=== PATIENT | male | born 1935 | race Caucasian/White ===

== ENCOUNTER 2023-04-12 12:41 | Inpatient (IN) | payer MEDICARE, SELFPAY ==
[2023-04-12] VITALS (35 sets, daily range): BP systolic 39–180; BP diastolic 18–100; PULSE 0–120; RESP 0–50; O2SAT 0–100
--- NOTE | ~2023-04-12 | XR_ITS ---
XR chest 1V portable 04/12/2023 13:27 Indication: Weakness and dyspnea Procedure: AP portable chest Comparison: No prior studies for comparison. Findings: Status post median sternotomy for CABG. There are bilateral perihilar and bibasilar interst itial infiltrates. No significant effusion. No pneumothorax. No acute osseous abnormality. Impression: 1: Bilateral interstitial infiltrates of the mid and lower lungs, interstitial edema versus atypical pneumonia. Reviewed, dictated and finalized at location A. Impression: 1: Bilateral interstitial infiltrates of the mid and lower lungs, interstitial edema versus atypical pneumonia.
--- NOTE | ~2023-04-12 | CT_ITS ---
EXAMINATION: CT cervical spine wo con DATE: 04/12/2023 14:16 INDICATION: Neck pain after fall TECHNIQUE: Computed tomography (CT) of the cervical spine was performed without intravenous contrast. The dose-length product was 374 mGy-cm. COMPARISON: None FINDINGS: there is dependent airspace disease of the right apex. There is straightening of cervical l ordosis which may be due to muscle spasm or patient positioning. There is degenerative anterolisthesi s at C4-5. There is severe multilevel uncinate and facet hypertrophy. There is dextroscoliosis. Odont oid process is normal. There is demineralization. No acute fracture, subluxation or dislocation. Ther e is degenerative anterolisthesis at C4-5 and C7-T1. IMPRESSION: 1. No acute abnormality of the cervical spine. 2: Severe cervical spondylosis. Reviewed, dictated and finalized at location A.
--- NOTE | ~2023-04-12 | CT_ITS ---
EXAMINATION: CT brain wo con DATE: 04/12/2023 14:16 INDICATION: Confusion TECHNIQUE: Computed tomography (CT) of the head was performed without intravenous contrast. The dose- length product was 605.33 mGy-cm. Automated exposure control and iterative reconstruction technique w ere employed. COMPARISON: None FINDINGS: Generalized atrophy. There are scattered mild periventricular and subcortical white matter changes, most likely related to small vessel ischemic disease (microangiopathy). No ventriculomegaly or midline shift. Basilar cisterns are patent. There is intracranial atherosclerosis. No acute infarc tion, hemorrhage, mass or mass effect. There is mucosal thickening in the right maxillary sinus with mucoperiosteal reaction. Midline sagittal images are unremarkable. IMPRESSION: 1. No acute intracranial abnormality. 2: Chronic age-related findings Reviewed, dictated and finalized at location A.
--- NOTE | ~2023-04-12 | CT_ITS ---
EXAMINATION: CT abdomen pelvis wo con DATE: 04/12/2023 14:17 INDICATION: abdominal pain, septic TECHNIQUE: Computed tomography (CT) of the abdomen and pelvis was performed without intravenous contr ast. Automated exposure control and iterative reconstruction technique were employed. The dose-length product was 1390.68 mGy-cm. COMPARISON: X-ray chest, same date; renal CT 02/21/2009. FINDINGS: Motion and beam hardening artifact throughout the scan. Lower thorax: Left chest pacer. Sternotomy wires. Dilated central pulmonary arteries. Coronary artery calcifications. Approximately 7.1 cm masslike opacity in the medial right hilar/infrahilar lung. Med iastinal lymphadenopathy. Dependent atelectasis and senescent/interstitial changes. Liver: Trace perihepatic fluid. Biliary/Gallbladder: Gallbladder is normal. No bile duct dilation. Pancreas: No mass or duct dilation. Spleen: Normal. Adrenals:No mass. Kidneys: Bilateral perinephric stranding and cortical atrophy. Simple bilateral cysts. GI tract: No small or large bowel dilation. Normal appendix. Diverticulosis without diverticulitis. T he rectum is mildly dilated to 5 cm by formed stool. Urinary bladder decompressed by a Post catheter . Mesentery/Peritoneum: No ascites, mass, or free air. Retroperitoneum: No mass. Atherosclerotic abdominal aortic and/or arterial calcifications. Pelvis: Pelvic organs are within normal limits. Soft Tissues: Small umbilical hernia containing a loop of bowel, without evidence of inflammatory kenyatta nge, strangulation, or obstruction. Uncomplicated bilateral fat-containing inguinal hernias. Bones: Sclerosis of the T9 vertebral body. Partially visualized uncomplicated appearing right hip ar throplasty. Multiple acute bilateral anterior rib fractures. Lytic and sclerotic lesion in the left s acrum. Focal sclerosis in the left iliac weighing adjacent to the SI joint IMPRESSION: 7.1 cm opacity in the right hilar/infrahilar lung, concerning for neoplasia. Mediastinal lymphadenopa thy. Uncomplicated small bowel containing umbilical hernia. Mild fecal impaction. Osseous lesions con cerning for metastatic disease. Reviewed, dictated and finalized at location K. IMPRESSION: 7.1 cm opacity in the right hilar/infrahilar lung, concerning for neoplasia. Me diastinal lymphadenopathy. Uncomplicated small bowel containing umbilical herni a. Mild fecal impaction. Osseous lesions concerning for metastatic disease.
--- NOTE | 2023-04-12 12:46 | ECG_ITS ---
Measurements Intervals [place] Rate: 77 P: ID: 0 QRS: 249 QRSD: 187 T: 63 QT: 487 QTc: 554 Interpretive Statements ELECTRONIC VENTRICULAR PACEMAKER UNDERLYING ATRIAL TACHYCARDIA WITH VARIABLE BLOCK NO FURTHER INTERPRETATION IS POSSIBLE ABNORMAL ECG NO PREVIOUS ECG AVAILABLE FOR COMPARISON Electronically Signed On 04-12-2023 13:41:54 CDT by Sherman Tuttle D.O.
[2023-04-12 13:09] LABS: Alveolar/Arterial O2 Gradient 53.8 mmHg; Base Excess ABG -14.2 mEq/l (+/-2.0); Fractional Inspired Oxygen 21 %; HCO3 ABG 9.4 mEq/l (22.0-26.0); Methemoglobin ABG 0.3 %THb (0-1.5); Oxygen Content ABG 18.1 %vol (16.0-22.0); Oxygen Saturation ABG 94.1 % (95.0-100.0); Oxyhemoglobin 91.2 % THb (90.0-100.0); PO2 ABG 73.5 mmHg (80.0-100.0); Reduced Hemoglobin 7.5 %THb (0-5.0); Total Hemoglobin 14.1 g/dL (12.0-18.0); pH ABG 7.319 (7.350-7.450)
[2023-04-12 13:11] LABS: Modified Allen's Test Pass; PCO2 ABG 18.7 mmHg (35.0-45.0); Site Drawn RIGHT RADIAL
[2023-04-12 13:20] LABS: Glucose Point of Care 298 mg/dl (65-105)
[2023-04-12 13:23] LABS: Hematocrit 44.3 % (42.0-52.0); Hemoglobin 14.5 g/dL (14.0-18.0); Mean Corpuscular HGB Conc 32.7 g/dl (32-36); Mean Corpuscular Hemoglobin 31.1 pg (26-34); Mean Corpuscular Volume 95.1 fl (80-100); Mean Platelet Volume 10.2 fl (7.4-10.4); Platelet Count Result 282 k/mm3 (150-375); Red Blood Count 4.66 M/mm3 (4.6-6.20); Red Cell Distribution Width 14.6 % (11.5-14.5)
[2023-04-12 13:33] LABS: Lactic Acid Reflex 3.9 mmol/L (0.7-2.0); Magnesium 3.1 mg/dL (1.6-2.3)
[2023-04-12] MEDS: SODIUM CHLORIDE 0.9% IV 1,000 ML 999 ML IV CONT (13:34)
[2023-04-12 13:35] LABS: Ethanol < 10 mg/dL (<10); INR 1.5; Prothrombin Time 19.4 Seconds (11.1-14.7)
[2023-04-12 13:39] LABS: Albumin Level 3.6 g/dL (3.5-5.1); Alkaline Phosphatase 120 U/L (38-126); Anion Gap 22 mmol/L (8-16); Aspartate Amino Transferase 36 U/L (17-59); Bilirubin,Total 1.9 mg/dL (0.2-1.3); Blood Urea Nitrogen 61 mg/dL (9-20); Calcium 8.3 mg/dL (8.4-10.2); Carbon Dioxide 13 mmol/L (22-30); Chloride 110 mmol/L (98-107); Creatine Kinase 273 U/L (55-170); Estimated Glomerular Filt Rate 38; Glucose 311 mg/dL (65-110); Lipase 35 U/L (23-300); Potassium 3.8 mmol/L (3.4-5.0); Sodium 145 mmol/L (137-145)
--- NOTE | 2023-04-12 13:40 | PC.NURSE ---
Daniel aggarwal called at 1339. Dr Jha at bedside. BVM and chest compressions began immediately. Family at bedside.
[2023-04-12 13:42] LABS: Alanine Aminotransferase 38 U/L (6-50)
[2023-04-12 13:43] LABS: NT Pro B Type Natriuretic Pept 9520 pg/mL (19.9-100)
[2023-04-12 13:44] LABS: Appearance Urine Clear (Clear); Bacteria Urine None Seen /hpf; Bilirubin Urine Negative (Negative); Blood Urine 1+ (Negative); Color Urine Yellow (Yellow); Glucose Urine UA 3+ mg/dL (Negative); Ketones Urine 2+ mg/dL (Negative); Leukocyte Esterase Ur Negative LEU/UL (Negative); Need Manual Microscopic Reviewed; Nitrate Urine Negative (Negative); Protein Urine 2+ mg/dL (Negative); RBC Urine 0-2 /hpf (0-2); Specific Grav Ur 1.024 (1.001-1.035); Squamous Epithelial Cell Urine None seen /hpf (Few); WBC Urine 0-5 /hpf
[2023-04-12 13:46] LABS: Add Urine Microscopic? YES
[2023-04-12 13:47] LABS: Troponin I 0.112 ng/mL (0.000-0.034)
--- NOTE | 2023-04-12 13:48 | ED.ARRPALP ---
HPI - Arrhythmia/Palpitations General Chief Complaint: Arrhythmia/Palpitations Stated Complaint: fall- vtach Time Seen by Provider: 04/12/23 12:45 Source: patient, family, EMS and RN notes reviewed Mode of arrival: EMS Limitations: altered mental status History of Present Illness HPI narrative: This is an 88 year old male who presents from home for evaluation of fall and altered mental status. EMS states they were fall for a fall and patient was found confuse in between the bed. They also report patient was going in and out of [facility]. EMS gave patient amiodarone 150 mg IV in route. 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 His daughter states he did not answer her text normally at 830 am but he responded good morning to another daughter. patient is oriented to person. He reports shortness of breath, back pain, abdominal pain . He denies chest pain. Related Data Allergies Allergy/AdvReac Type Severity Reaction Status Date / Time LIMETOPICALSOL Allergy Mild Uncoded 03/14/09 15:54 Review of Systems Review of Systems: ROS unobtainable: Yes unobtainable due to mental status FORMERLY [facility] Past Medical History Medical History (Updated 04/12/23 @ 18:03 by Manjula Oshea NP) CAD (coronary artery disease) Cardiac defibrillator in place Diabetes mellitus Hypertension Surgical History Surgical History (Updated 04/12/23 @ 17:52 by Manjula Oshea NP) AICD (automatic cardioverter/defibrillator) present Hx of CABG Family History Family History Sibling Chronic renal failure, stage 3 (moderate) Cerebral brain hemorrhage Aneurysm Father Diabetes mellitus Mother Anemia Social History Social History (Updated 04/12/23 @ 17:52 by Manjula Oshea NP) Social History: he lives alone . he is . 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 he has 4 children . code status dnr Smoking status: Smoker, status unknown Exam Const: General: confusion and ill appearing Limitations: altered mental status Other: oriented to person, able to answer some questions yes and no HENMT: Face and sinus: dry mucous membranes Throat: uvula midline Other: dry lips;facial symmetry present Eyes: Pupils: Equal, round and reactive pupils present EOM: EOMs intact bilaterally Chest: Chest palpation & inspection: normal inspection of the chest Resp: Effort & Inspection: tachypneic Auscultation: clear to auscultation bilaterally Cardio: Rate: regular rate Rhythm: abnormal rhythm Heart sounds: Murmur heart sound present GI: GI Palp: Yes Soft to palpation, Yes Tenderness to palpation present (GI) (Diffuse), No Guarding due to palpation present (GI), No Rigid due to palpation and Yes Hernia present (umbilical hernia) Auscultation: normal bowel sounds Skin: General skin exam: pallor Wounds: no wounds Neuro: General: moves all extremities and CN's II-XI intact bilaterally Extrem: General: edema bilateral (pedal) Psych: Other: mild agitate Course Reevaluation(s) Reevaluation #1: Nursing staff called me to bedside, patient was witnessed having generalized tonic clonic seizure. This seizure last 1-2 minutes. After seizure, patient became apneic and unable to feel pulse. PEA so ACLS protocol started. Daughter at bedside. She wished for us to perform CPR and give medications she did not want patient intubated. see code sheet Date: 04/12/23 Time: 13:48 Reevaluation #2: Patient had another seizure. Patient is still on Bipap. FAmily was at bedside. I discussed patient critical with hypotension, DKA, CHF. She would like to place patient on comfort care. They aske nurse to stop levophed, insulin drip . BIPAP was discontinued and patient placed on nasal cannula . Date: 04/12/23 Time: 16:19 Reevaluation #3: Patient in ER at 1728. He did not have any respirations. No
[2023-04-12 13:54] LABS: Band Neutrophils Percent 24 % (0-6); Lymphocytes Absolute Manual 0.45 K/mm3 (1.1-4.5); Metamyelocytes Percent 2 %; Monocytes Absolute Manual 1.05 K/mm3 (0.1-0.90); Monocytes Percent Manual 7 % (3-9); Neutrophils Percent Manual 64 % (46-73); Schistocytes None Seen (NORMAL); Total Cells Counted 100
[2023-04-12] MEDS: NOREPINEPHRINE 8 MG/D5W 250 ML 8 MG/250 ML BAG 9.38 MG IV CONT (14:30)
[2023-04-12 14:31] LABS: Glucose Point of Care 294 mg/dl (65-105)
[2023-04-12] MEDS: INSULIN HUMAN REGULAR (*BKC) 100 UNITS in SODIUM CHLORIDE 0.9% IV 99 ML IV CONT (14:34)
--- NOTE | 2023-04-12 14:43 | PC.NURSE ---
Please refer to Code Blue Sheet on paper for further documentation of code.
[2023-04-12 15:06] LABS: Hemoglobin A1C 7.2 % (<5.7)
[2023-04-12] MEDS: LORazepam INJ (*CRX) 2 MG/ML VIAL IV PUSH (15:10)
[2023-04-12 15:14] LABS: Amphetamine Screen Urine Negative (Negative); Barbiturate Screen Urine Negative (Negative); Benzodiazepines Screen Urine Negative (Negative); Cannabinoid Screen Urine Negative (Negative); Cocaine Screen Urine Negative (Negative); Methadone Screen Urine Negative (Negative); Opiate Screen Urine Negative (Negative); Phencyclidine Screen Urine Negative (Negative)
[2023-04-12 15:18] LABS: Influenza A QL RT-PCR Negative (Negative); Influenza B QL RT-PCR Negative (Negative); SARS-CoV-2 RNA PCR Negative (Negative)
--- NOTE | 2023-04-12 15:23 | PC.NURSE ---
all medications stopped per Family. MD tapia present for conversation with family.
--- NOTE | 2023-04-12 15:37 | PC.NURSE ---
Bipap removed and placed on NC for comfort per family and MD tapia
[2023-04-12 15:42] LABS: Beta-Hydroxybutyrate/Acetoacetate 6.61 mmol/L (0.02-0.27)
[2023-04-12] MEDS: levETIRAcetam 1000MG/NACL100ML 1,000 MG/100 ML BAG 400 MG IVPB (15:43)
--- NOTE | 2023-04-12 16:13 | PM.IMHP ---
H&P: HPI History of Present Illness Date/Time: 04/12/23 16:13 Chief Complaint: arrhythmia palpitation Narrative: this is an 88-year-old man who was in his normal state health yesterday and was out and about. The patient came to the ER from home today due to evaluation of fall and altered mental status. The patient had fallen between his bed and was found to be confused. The patient was going in and out of [facility] [facility] and he was given amiodarone 150 mg IV and route. According to his daughter he did not answer her tax normally as he did at 8:30 a.m. in the morning. However he did respond good morning to another daughter. The patient was orientated to person only. He was short of breath and having back pain and abdominal pain he denied any chest pain. His white count was found to be 15. The patient was in metabolic acidosis. His pH was 7.319, CO2 was 18.7. PO2 73.5. Creatinine 1.7 BUN 61. No prior labs for comparison. Patient's blood sugar was 294 and previously it had been 311. A1c was reported as 7.2. Magnesium was 3.1. Troponin 0.112. Total creatinine kinase 273. BNP is 9520. His Bhop was noted to be 6.61. His anion gap is 22. The patient was started on an insulin drip. His toxicology screen was negative. Influenza A/B and COVID were negative Abdominal pelvis CT was read as the following.7.1 cm opacity in the right hilar/infrahilar lung, concerning for neoplasia. Mediastinal lymphadenopathy. Uncomplicated small bowel containing umbilical hernia. Mild fecal impaction. Osseous lesions concerning for metastatic disease. cervical spine CT was read as no acute abnormality of the cervical spine. Severe cervical spondylosis. Head CT was read as no acute intracranial abnormality. Chronic age-related findings. Chest x-ray was read as bilateral interstitial infiltrates of the mid and lower lungs. Interstitial edema versus atypical pneumonia. The patient was given IV fluids, Levophed, Ativan, Keppra epinephrine, calcium and sodium bicarb. The family was at the bedside and decided to make the patient comfort measures. All medications were taken off the patient. The patient was having snoring respiration. The patient appeared to be comfortable. This is a short-stay summary is the patient was pronounced at 5:28 p.m. on 04/12/2023. THIS IS A SHORT-STAY SUMMARY. INCLUDES HIS HISTORY AND PHYSICAL AND HIS SUMMARY. Review of Systems Review of Systems: All systems reviewed & are unremarkable except as noted in HPI and below Constitutional: Constitutional: Reports as per HPI and Reports no additional constitutional complaints Eyes: Eyes: Reports as per HPI and Reports no additional eye complaints ENT: Reports system reviewed and no additional complaints, except as documented and Reports Normal hearing present Cardiovascular: Cardiovascular: Reports no additional cardiovascular complaints Respiratory: Respiratory: Reports no additional respiratory complaints and Reports no additional respiratory complaints Gastrointestinal: Gastrointestinal: Reports as per HPI and Reports no additional gastrointestinal complaints Musculoskeletal: Musculoskeletal: Reports no additional musculoskeletal complaints Integumentary/Breasts: Skin/Breast: Reports system reviewed and no additional complaints, except as docu and Reports as per HPI Neurologic: Reports system reviewed and no additional complaints, except as documented, Reports as per HPI and Reports Normal hearing present Psychiatric: Psychiatric: Reports no additional psychiatric complaints and Reports as per HPI Endocrine: Endocrine: Reports no additional endocrine complaints Hematologic/Lymphatic: Hematologic/Lymphatic: Reports no additional hematologic/lymphatic complaints Allergic/Immunologic: Allergic/Immunologic: Reports no additional allergic/immunologic complaints [facility] Past Medical History Medical History (Updated 04/12/23 @ 18:03 by Manjula Oshea NP) CAD
[2023-04-12 16:20] LABS: Reflex Lactic Acid Yes or No Add Lactic
--- NOTE | 2023-04-12 17:52 | PC.NURSE ---
spoke to Director Perioperative, need to figure out who will sign certificate. they will release the body at that stage. [facility] feel like the pt is a candidate for donation, asking that the pt go to the morgue ot the home for now. spoke with Clarice
--- NOTE | 2023-04-12 18:38 | PC.NURSE ---
MTS returned call and released body to home
== END 2023-04-12 17:28 | disposition expired | DRG 308 ==
LOC: ANHED 04-13 18:18 → ANH2MED 05-01 08:26
PROVIDERS: Admitting Provider Student in an Organized Health Care Education/Training Program; Emergency Provider General Practice; PCP Internal Medicine; Visit Provider Nurse Practitioner
DX: I47.20 Ventricular tachycardia, unspecified (principal); E11.10 Type 2 diabetes mellitus with ketoacidosis without coma; N17.9 Acute kidney failure, unspecified; G40.901 Epilepsy, unspecified, not intractable, with status epilepticus; I47.1 Supraventricular tachycardia; I46.9 Cardiac arrest, cause unspecified; I50.9 Heart failure, unspecified; Z20.822 Contact with and (suspected) exposure to COVID-19; I11.0 Hypertensive heart disease with heart failure; I25.10 Atherosclerotic heart disease of native coronary artery without angina pectoris; Z95.810 Presence of automatic (implantable) cardiac defibrillator; Z95.1 Presence of aortocoronary bypass graft; R91.8 Other nonspecific abnormal finding of lung field; M47.812 Spondylosis without myelopathy or radiculopathy, cervical region; M89.9 Disorder of bone, unspecified; K42.9 Umbilical hernia without obstruction or gangrene; Z51.5 Encounter for palliative care
CPT/HCPCS: 36415; 36600; 70450; 71045; 72125; 74176; 80053; 80307; 81001; 82010; 82375; 82550; 82805; 82948; 83036; 83050; 83605; 83690; 83735; 83880; 84484; 85025; 85610; 85730; 87636; 92950; 93005; 96365; 96367; 96375; 99291; J0171; J1815; J1953; J2060; J7030